=== PATIENT | male | born 1945 | race Caucasian/White ===

== ENCOUNTER 2019-11-06 09:34 | Inpatient (IN) | payer MEDICARE ==
[2019-11-06] VITALS (8 sets, daily range): BP systolic 123–161; BP diastolic 60–79; BMI 28.4
[~2019-11-06] VITALS: Ht 182.9 cm; Wt 94.8 kg
[2019-11-06 10:09] LABS: BASOPHILS 0 % (0-2); EOSINOPHILS 0.5 % (0-7); HEMATOCRIT 39.9 % (42.0-54.0); HEMOGLOBIN 13.8 g/dL (13.5-17.5); IMMATURE GRANULOCYTES 0.3 % (0-5); LYMPHOCYTES 17.7 % (15-50); MCH 28.8 pg (26.0-34.0); MCHC 34.6 g/dL (31.0-37.0); MCV 83.1 fL (80.0-100.0); MEAN PLATELET VOLUME 9.2 fL (7.4-10.4); MONOCYTES 9.1 % (2-11); NEUTROPHILS 72.4 % (40-80); PLATELET COUNT 152 10x3/uL (130-400); RDW 13.1 % (11.5-14.5); WBC 3.8 10x3/uL (4.8-10.8)
[2019-11-06 10:15] LABS: CALC OSMOLALITY 272 mosm/kg (275-300); CALCIUM 8.2 mg/dL (8.5-10.1); CHLORIDE - SERUM 100 mmol/L (98-107); CREATININE - SERUM 1.3 mg/dL (0.6-1.3); GLUCOSE 107 mg/dL (74-106); POTASSIUM - SERUM 3.9 mmol/L (3.5-5.1); SODIUM 135 mmol/L (136-145); UREA NITROGEN 21 mg/dL (7-18); eGFR NON AFRICAN AMERICAN 57 mL/min (90-120)
[2019-11-06 10:16] LABS: APTT 32.3 SECONDS (22.8-39.4)
[2019-11-06 10:20] LABS: INR 1.06 (0.85-1.17); PROTIME 13.7 SECONDS (11.6-15.0)
[2019-11-06 10:35] LABS: ALBUMIN 2.9 g/dL (3.4-5.0); ALKALINE PHOSPHATASE 76 U/L (30-120); ALT (SGPT) 108 U/L (10-68); BILIRUBIN - TOTAL 0.87 mg/dL (0.2-1.3); CKMB 1.2 U/L (0.0-3.6); CREATINE KINASE 454 UL (21-232); PROTEIN - SERUM 6.8 g/dL (6.4-8.2); TROPONIN-I < 0.017 ng/mL (0.000-0.060)
--- NOTE | 2019-11-06 10:40 | NUR ---
PT LAYING IN BED. NO DISTRESS NOTED. COLOR WNL FOR RACE. RESPIRATIONS ARE ARE EVEN AND UNLABORED. WILL CONTINUE TO MONITOR PATIENT.
[2019-11-06 10:55] LABS: BILIRUBIN NEGATIVE (NEGATIVE); KETONE SMALL mg/dL (NEGATIVE); NITRITE NEGATIVE (NEGATIVE); UROBILINOGEN NORMAL mg/dL (< 2)
[2019-11-06 10:57] LABS: BACTERIA FEW /HPF (NONE SEEN); WHITE CELLS - URINE 0-5 HPF (0-1)
--- NOTE | 2019-11-06 12:25 | NUR ---
called report to [facility] at this time.
--- NOTE | 2019-11-06 14:02 | NUR ---
PT RECEIVED TO ROOM FROM ER ON CART. ASSIST TO BED. OXYGEN AT 2.5 LITERS. STATES JUST FEELS BAD. WILL NEED TO CALL PHARMACY FOR MED DOSES FOR MED REC.
[2019-11-06] MEDS ORDERED: COZAAR100 MG PO (14:40)
[2019-11-06] MEDS ORDERED: CRESTOR20 MG PO (14:41)
--- NOTE | 2019-11-06 19:00 | NUR ---
REPORT RECIEVED, PT CARE ASSUMED. INTRODUCED SELF AND WROTE NAME ON BOARD. PT LYING IN BED WITH EYES CLOSED, RR EVEN AND NONLABORED, NO S/S OF DISTRESS, AROUSES EASILY TO VOICE, ORIENTED X4. DENIES ANY NEEDS AT THIS TIME. BED IN LOWEST, SRX2, CALL LIGHT WITHIN REACH. WILL CTM.
[2019-11-07 00:02] VITALS: BP 134/62
[2019-11-07 04:20] VITALS: BP 136/70
[2019-11-07 05:01] LABS: BASOPHILS 0.3 % (0-2); HEMATOCRIT 37.2 % (42.0-54.0); HEMOGLOBIN 12.8 g/dL (13.5-17.5); IMMATURE GRANULOCYTES 7.3 % (0-5); LYMPHOCYTES 11.6 % (15-50); MCH 28.9 pg (26.0-34.0); MCHC 34.4 g/dL (31.0-37.0); MEAN PLATELET VOLUME 8.8 fL (7.4-10.4); MONOCYTES 9.1 % (2-11); NEUTROPHILS 64.7 % (40-80); PLATELET COUNT 163 10x3/uL (130-400); RBC 4.43 10x6/uL (4.20-6.10); RDW 13.1 % (11.5-14.5); WBC 3.3 10x3/uL (4.8-10.8)
[2019-11-07 05:21] LABS: ALBUMIN 2.4 g/dL (3.4-5.0); ANION GAP 12.8 mmol/L (8-16); CARBON DIOXIDE 24.2 mmol/L (21.0-32.0); CREATININE - SERUM 1.1 mg/dL (0.6-1.3)
--- NOTE | 2019-11-07 07:00 | NUR ---
RECEIVED REPORT. ASSUMED CARE OF PATIENT. PATIENT REMAINS IN DROPLET ISOLATION FOR COVID 19.
[2019-11-07 08:25] VITALS: BP 149/69
--- NOTE | 2019-11-07 12:00 | NUR ---
PATIENT RESTING WELL WITH EYES CLOSED, EASILY AROUSED. PATEINT DENIES NEEDS. PATIENT STATES HE FEELS SOMEWHAT BETTER AND MORE TALKATIVE THAN THIS AM. CALL LIGHT WITHIN REACH. NO DISTRESS. BAG OF CLOTHES DELIVERED TO PATIENT THAT WAS BROUGHT AND DROPPED OFF AT THE ED. INCENTIVE SPIROMETRY PROVIDED TO PATEINT AT THIS TIME.
--- NOTE | 2019-11-07 17:45 | NUR ---
RESTING WITH EYES CLOSED. NO DISTRESS. CALL LIGHT WITHIN REACH. FRESH ICEWATER PROVIDED. REMAINS IN ISOLATION, COVID 19 TEST REMAINS PENDING.
--- NOTE | 2019-11-07 19:30 | NUR ---
RECEIVED REPORT, WILL ASSUME CARE OF PT, PUI, WAITING ON RESULTS, [id number], 2L-NC, R.HAND-NS @75, LFA-SL, DENIES ANY NEEDS AT THIS TIME, BED IS LOW, SRX2, CALL LIGHT IN REACH, WILL CONTINUE PLAN OF CARE
[2019-11-07 20:00] VITALS: BP 125/52
--- NOTE | 2019-11-07 20:27 | NUR ---
[place] IN LAB CALLED, COVID IS +
[2019-11-08 08:54] VITALS: BP 115/58
[2019-11-08 11:54] VITALS: BP 165/98
[2019-11-08 15:53] VITALS: BP 159/75
--- NOTE | 2019-11-08 19:30 | NUR ---
RECEIVED REPORT, WILL ASSUME CARE OF PT, 02-2L, IV-R.HAND-NS @50, [id number], DENIES ANY NEEDS AT THIS TIME, BED IS LOW, SRX2, CALL LIGHT IN REACH, WILL CONTINUE PLAN OF CARE
[2019-11-08 20:00] VITALS: BP 148/77
--- NOTE | 2019-11-08 22:20 | NUR ---
CONSENT SIGNED TO RECEIVED PLASMA
--- NOTE | 2019-11-08 23:29 | NUR ---
MANDA TUBBS STARTED 1 UNIT OF PLASMA
[2019-11-09] VITALS: BP 147/79
--- NOTE | 2019-11-09 00:20 | NUR ---
PRE-VITALS FOR PLASMA ADMINSTRATION STABLE. LUNG SOUNDS DIMINISHED. 50 ML/HR FOR FIRST 15 MINS. VITALS AFTER FIRST 15 MINS STABLE, LUNG SOUNDS UNCHANGED. PT DENIES ANY ADVERSE EFFECTS. SET PUMP TO INFUSE OVER 2 HRS. EDUCATED PT ABOUT SYMPTOMS TO ALERT NURSE. PT VERBALIZED UNDERSTANDING. BED LOCKED AND LOWERED, CALL LIGHT IN REACH.
[2019-11-09 04:00] VITALS: BP 154/71
[2019-11-09 06:36] LABS: BASOPHILS 0 % (0-2); EOSINOPHILS 0 % (0-7); HEMATOCRIT 36.4 % (42.0-54.0); HEMOGLOBIN 12.4 g/dL (13.5-17.5); IMMATURE GRANULOCYTES 0.7 % (0-5); LYMPHOCYTES 8.1 % (15-50); MCH 28.4 pg (26.0-34.0); MCHC 34.1 g/dL (31.0-37.0); MCV 83.3 fL (80.0-100.0); MEAN PLATELET VOLUME 9.5 fL (7.4-10.4); MONOCYTES 6.7 % (2-11); NEUTROPHILS 84.5 % (40-80); RBC 4.37 10x6/uL (4.20-6.10); RDW 13.1 % (11.5-14.5); WBC 4.2 10x3/uL (4.8-10.8)
[2019-11-09 06:48] LABS: PLATELET COUNT 249 10x3/uL (130-400)
[2019-11-09 06:56] LABS: ALBUMIN 2.4 g/dL (3.4-5.0); ALKALINE PHOSPHATASE 73 U/L (30-120); ALT (SGPT) 150 U/L (10-68); BILIRUBIN - TOTAL 0.53 mg/dL (0.2-1.3); CALC OSMOLALITY 281 mosm/kg (275-300); CALCIUM 8.4 mg/dL (8.5-10.1); CARBON DIOXIDE 23.5 mmol/L (21.0-32.0); CHLORIDE - SERUM 109 mmol/L (98-107); GLUCOSE 121 mg/dL (74-106); SODIUM 140 mmol/L (136-145); UREA NITROGEN 19 mg/dL (7-18); eGFR NON AFRICAN AMERICAN 77 mL/min (90-120)
--- NOTE | 2019-11-09 07:00 | NUR ---
RECEIVED REPORT. ASSUMED CARE OF PATIENT. PATIENT REMAINS IN DROPLET ISOLATION FOR COVID19.
[2019-11-09 07:30] VITALS: BP 142/70
--- NOTE | 2019-11-09 08:31 | NUR ---
PATIENT SITTING TO SIDE OF BED, STATES HE FEELS MUCH BETTER. LUNGS SOUNDS IMPROVED. PATIENT WITH APPETITE THIS MORNING, CONSUMING AM MEAL. NO DISTRESS.
[2019-11-09 11:30] VITALS: BP 138/68
[2019-11-09 13:26] VITALS: Ht 182.9 cm; Wt 94.8 kg
--- NOTE | 2019-11-09 16:10 | MORECARE ---
CASE MANAGEMENT DISCHARGE SUMMARY PATIENT: EMMANUEL LIRIANO UNIT: [id number] ADM DATE: 11/06/19 AGE: 74 : 43 SEX: M ROOM/BED: D.2131 AUTHOR: MILLY JOLLEY PHYSICIAN: REFERRING PHYSICIAN: DEVONTE GREGORIO MD DATE OF SERVICE: 11/09/19 Discharge Plan Patient Name: EMMANUEL LIRIANO Facility: [facility]:[place] : 1945 Planned Disposition: Anticipated Discharge Date: Discharge Date: Expected LOS: Initial Reviewer: [email or web address] Initial Review Date: 11/06/2019 Generated: 11/09/19 5:09 pm Comments DCP- Discharge Planning Updated by [email or web address]: Lucille Michelle on 11/09/19 3:[address] CM called pt room to complete DC planning assessment. Cm called pt room 3 times, but pt did not answer phone. CM called pt emergency electronic parts salesperson Luis Han at [phone]. CM unable to reach, and could not leave a message. Will continue to assist with dc planning/needs. Lucille Michelle Patient Name: EMMANUEL LIRIANO Page [id number] at 1610 All edits/amendments must be made on the electronic document DICTATION DATE: 11/09/19 1610 MEDICAL RECORDS ADMINISTRATOR: ALEC 11/09/19 1610 RPT#: [id number] DC DATE: STATUS: ADM IN [facility] [address] [place] [address] END OF REPORT
--- NOTE | 2019-11-09 19:00 | NUR ---
REPORT RECEIVED, WILL CONTINUE POC. PATIENT IS RESTING WITH EYES CLOSED. NO S/S OF DISTRESS OBSERVED, RR EVEN AND UNLABORED ON 2L O2 VIA NC. PIV TO RT HAND, SL AND LT FA INFUSING NS @ 75ML/HR. NO NEEDS EXPRESSED AT THIS TIME. CL IN REACH, BED LOCKED AND LOWERED. COVID-19 PRECAUTIONS MAINTAINED. WILL CTM.
[2019-11-09 20:00] VITALS: BP 152/75
--- NOTE | 2019-11-09 23:54 | NUR ---
2ND UNIT OF PLASMA HAS YET TO BE DELIVERED TO THE LAB THEREFORE IS NOT AVAILABLE TO TRANSFUSE AT THIS TIME. LAB WILL CALL WHEN THE PLASMA HAS BEEN DELIVERED AND IS AVAILABLE.
[2019-11-10] VITALS (9 sets, daily range): BP systolic 138–152; BP diastolic 70–81
[2019-11-10 05:10] LABS: BASOPHILS 0.2 % (0-2); EOSINOPHILS 0 % (0-7); HEMATOCRIT 31.8 % (42.0-54.0); HEMOGLOBIN 10.8 g/dL (13.5-17.5); IMMATURE GRANULOCYTES 0.8 % (0-5); LYMPHOCYTES 5.5 % (15-50); MCH 27.9 pg (26.0-34.0); MCV 82.2 fL (80.0-100.0); MEAN PLATELET VOLUME 9.1 fL (7.4-10.4); MONOCYTES 13.1 % (2-11); NEUTROPHILS 80.4 % (40-80); RBC 3.87 10x6/uL (4.20-6.10); RDW 13.4 % (11.5-14.5); WBC 5.1 10x3/uL (4.8-10.8)
[2019-11-10 05:19] LABS: PLATELET COUNT 199 10x3/uL (130-400)
[2019-11-10 05:27] LABS: ALBUMIN 2.3 g/dL (3.4-5.0); ALKALINE PHOSPHATASE 69 U/L (30-120); ALT (SGPT) 118 U/L (10-68); BILIRUBIN - TOTAL 0.44 mg/dL (0.2-1.3); CALC OSMOLALITY 286 mosm/kg (275-300); CARBON DIOXIDE 23.6 mmol/L (21.0-32.0); CHLORIDE - SERUM 110 mmol/L (98-107); GLUCOSE 156 mg/dL (74-106); POTASSIUM - SERUM 3.7 mmol/L (3.5-5.1); PROTEIN - SERUM 5.4 g/dL (6.4-8.2); SODIUM 141 mmol/L (136-145); UREA NITROGEN 22 mg/dL (7-18); eGFR NON AFRICAN AMERICAN 77 mL/min (90-120)
--- NOTE | 2019-11-10 11:09 | NUR ---
PT WITH INCREASING OXYGEN NEEDS. UP TO 10 LITERS HI FLOW. ABG'S DONE AND CALLED TO DR DYER. ORDERS FOR NON-REBREATHER AND TRANSFER TO ICU. HOUSE NOTIFIED, NO BED AVAILABLE AT PRESENT BUT THEY ARE LOOKING AT OPTIONS.
--- NOTE | 2019-11-10 12:04 | NUR ---
PT NOW ON 15 LITERS NON-REBREATHER AND PULSE OX 95%.
--- NOTE | 2019-11-10 14:48 | NUR ---
PT TRANSFERRED TO ICU ON NON-REBREATHER. REPORT GIVEN TO YANNI TUBBS. BELONGINGS WITH PT.
--- NOTE | 2019-11-10 15:45 | NUR ---
PATIENT TRANSFER FROM FLOOR DUE TO INCREASING SOB AND DECREASING SAT'S.PER REPORTING NURSE, PATIENT HAS BEEN NON COMPLIANT WITH NON REBREATHER. PATIENT DOES NOT LIKE TO USE IT. PATIENT IS AWAKE, ALERT AND ORIENTED X 4. PATIENT IS STABLE AND VSS. NON REBREATHER IN PLACE O2 SAATS 96%. PATIENT DENIES ANY NEEDS OR PAIN. WILL CONTINUE WITH PLAN OF CARE. SR UP X 2 BED IN LOW POSITIOIN AND CALL LIGHT IN REACH.
[2019-11-11] VITALS (20 sets, daily range): BP systolic 135–184; BP diastolic 68–87
[2019-11-11 05:12] LABS: BASOPHILS 0.2 % (0-2); EOSINOPHILS 0.2 % (0-7); HEMATOCRIT 33.3 % (42.0-54.0); HEMOGLOBIN 11.2 g/dL (13.5-17.5); IMMATURE GRANULOCYTES 1.1 % (0-5); LYMPHOCYTES 14.2 % (15-50); MCH 28.1 pg (26.0-34.0); MCHC 33.6 g/dL (31.0-37.0); MCV 83.7 fL (80.0-100.0); MEAN PLATELET VOLUME 9.7 fL (7.4-10.4); MONOCYTES 5.4 % (2-11); NEUTROPHILS 78.9 % (40-80); RBC 3.98 10x6/uL (4.20-6.10); RDW 13.6 % (11.5-14.5); WBC 4.6 10x3/uL (4.8-10.8)
[2019-11-11 05:15] LABS: PLATELET COUNT 153 10x3/uL (130-400)
[2019-11-11 05:33] LABS: ALBUMIN 2.1 g/dL (3.4-5.0); ALKALINE PHOSPHATASE 69 U/L (30-120); ALT (SGPT) 90 U/L (10-68); BILIRUBIN - TOTAL 0.48 mg/dL (0.2-1.3); C-REACTIVE PROTEIN 7.7 mg/dL (0.0-0.9); CALC OSMOLALITY 285 mosm/kg (275-300); CALCIUM 7.6 mg/dL (8.5-10.1); CARBON DIOXIDE 24.6 mmol/L (21.0-32.0); CHLORIDE - SERUM 109 mmol/L (98-107); CREATININE - SERUM 0.9 mg/dL (0.6-1.3); FERRITIN 672 ng/mL (3-244); GLUCOSE 128 mg/dL (74-106); LDH 427 U/L (85-227); POTASSIUM - SERUM 4.1 mmol/L (3.5-5.1); PROTEIN - SERUM 5.4 g/dL (6.4-8.2); SODIUM 141 mmol/L (136-145); UREA NITROGEN 21 mg/dL (7-18); eGFR NON AFRICAN AMERICAN 87 mL/min (90-120)
--- NOTE | 2019-11-11 11:10 | NUR ---
O2 CHANGED TO 15L HIGHFLOW CANNULA.
--- NOTE | 2019-11-11 12:36 | NUR ---
Nutrition follow-up: Pt now in ICU 2/2 breathing issues 15 L O2 NRB in place; pt sleeping Diet: Low sodium with po intake 75% of some meals Labs reviewed Wt: 209# RDN following.
[2019-11-12] VITALS (17 sets, daily range): BP systolic 105–195; BP diastolic 48–100
--- NOTE | 2019-11-12 08:26 | NUR ---
INCREASED O2 13L
--- NOTE | 2019-11-12 09:29 | NUR ---
UPDATED ON PT CONDITION. ANSWERED ALL QUESTIONS.
--- NOTE | 2019-11-12 11:10 | NUR ---
Nutrition follow-up: Pt receiving a low sodium diet PO intake ~75% of some meals; 0 at some meals due to BIPAP Labs reviewed wt: 209# Will continue to provide food choices and offer nutritional supplements. RDN following.
[2019-11-12 11:28] LABS: BASOPHILS 0 % (0-2); EOSINOPHILS 0.3 % (0-7); HEMATOCRIT 37.9 % (42.0-54.0); IMMATURE GRANULOCYTES 1.2 % (0-5); LYMPHOCYTES 8.2 % (15-50); MCH 28.6 pg (26.0-34.0); MCHC 34.3 g/dL (31.0-37.0); MCV 83.5 fL (80.0-100.0); MEAN PLATELET VOLUME 9.4 fL (7.4-10.4); MONOCYTES 3.6 % (2-11); NEUTROPHILS 86.7 % (40-80); PLATELET COUNT 159 10x3/uL (130-400); RBC 4.54 10x6/uL (4.20-6.10); RDW 13.6 % (11.5-14.5)
[2019-11-12 11:48] LABS: WBC 7.7 10x3/uL (4.8-10.8)
[2019-11-12 12:22] LABS: ALBUMIN 2.6 g/dL (3.4-5.0); ANION GAP 13.1 mmol/L (8-16); BILIRUBIN - TOTAL 0.95 mg/dL (0.2-1.3); CALCIUM 8.5 mg/dL (8.5-10.1); CARBON DIOXIDE 23.9 mmol/L (21.0-32.0); CREATININE - SERUM 1.1 mg/dL (0.6-1.3); PROTEIN - SERUM 6.4 g/dL (6.4-8.2)
--- NOTE | 2019-11-12 16:04 | NUR ---
TRANSFER TO ROOM 2133. REPORT GIVEN TO KEEGAN.
--- NOTE | 2019-11-12 18:09 | NUR ---
PT TF FROM ICU TO COVID UNIT ROOM 2133 @ 1604/STRETCHER W/IVF AND IVPB IN PROGRESS TO LEFT WRIST W/O DIFFICULTY. PT AWAKE, ALERT, ORIENTED, TALKING ON CELL PHONE. DENIES ANY NEEDS--BEHAVIORAL HEALTH RN IN ROOM TO OBTAIN VS.
[2019-11-13 01:08] VITALS: BP 128/61
[2019-11-13 06:05] LABS: BASOPHILS 0.2 % (0-2); EOSINOPHILS 0.2 % (0-7); HEMATOCRIT 33.4 % (42.0-54.0); HEMOGLOBIN 11.1 g/dL (13.5-17.5); IMMATURE GRANULOCYTES 0.9 % (0-5); MCHC 33.2 g/dL (31.0-37.0); MCV 84.1 fL (80.0-100.0); MEAN PLATELET VOLUME 9.5 fL (7.4-10.4); MONOCYTES 14.1 % (2-11); NEUTROPHILS 77.6 % (40-80); PLATELET COUNT 137 10x3/uL (130-400); RBC 3.97 10x6/uL (4.20-6.10); RDW 13.7 % (11.5-14.5)
[2019-11-13 06:10] LABS: WBC 4.6 10x3/uL (4.8-10.8)
[2019-11-13 06:30] LABS: ALBUMIN 2.1 g/dL (3.4-5.0); ALKALINE PHOSPHATASE 58 U/L (30-120); BILIRUBIN - TOTAL 0.49 mg/dL (0.2-1.3); CALC OSMOLALITY 287 mosm/kg (275-300); CALCIUM 7.7 mg/dL (8.5-10.1); CHLORIDE - SERUM 111 mmol/L (98-107); CREATININE - SERUM 0.9 mg/dL (0.6-1.3); GLUCOSE 119 mg/dL (74-106); POTASSIUM - SERUM 4.2 mmol/L (3.5-5.1); SODIUM 142 mmol/L (136-145); UREA NITROGEN 25 mg/dL (7-18); eGFR NON AFRICAN AMERICAN 87 mL/min (90-120)
[2019-11-13 06:31] LABS: ALT (SGPT) 70 U/L (10-68)
[2019-11-13 08:26] VITALS: BP 160/69
[2019-11-13 11:08] VITALS: BP 144/71
--- NOTE | 2019-11-13 13:37 | NUR ---
I have reviewed this patient and I concur with the Shift Assessment completed by the Licensed Practical Nurse today this shift.
[2019-11-13 17:14] VITALS: BP 137/55
[2019-11-13 20:50] VITALS: BP 138/60
[2019-11-14 00:50] VITALS: BP 134/60
[2019-11-14 04:36] VITALS: BP 148/72
[2019-11-14 06:46] LABS: BASOPHILS 0 % (0-2); EOSINOPHILS 0.5 % (0-7); HEMATOCRIT 32.6 % (42.0-54.0); HEMOGLOBIN 10.9 g/dL (13.5-17.5); IMMATURE GRANULOCYTES 1.2 % (0-5); MCH 27.9 pg (26.0-34.0); MCHC 33.4 g/dL (31.0-37.0); MCV 83.6 fL (80.0-100.0); MEAN PLATELET VOLUME 9.8 fL (7.4-10.4); NEUTROPHILS 76.3 % (40-80); PLATELET COUNT 138 10x3/uL (130-400); RDW 13.8 % (11.5-14.5); WBC 4.2 10x3/uL (4.8-10.8)
[2019-11-14 07:08] LABS: ALBUMIN 2.1 g/dL (3.4-5.0); ALKALINE PHOSPHATASE 58 U/L (30-120); ALT (SGPT) 58 U/L (10-68); BILIRUBIN - TOTAL 0.45 mg/dL (0.2-1.3); CALC OSMOLALITY 279 mosm/kg (275-300); CALCIUM 7.9 mg/dL (8.5-10.1); CARBON DIOXIDE 25.5 mmol/L (21.0-32.0); CHLORIDE - SERUM 107 mmol/L (98-107); CREATININE - SERUM 0.8 mg/dL (0.6-1.3); GLUCOSE 117 mg/dL (74-106); POTASSIUM - SERUM 3.8 mmol/L (3.5-5.1); SODIUM 138 mmol/L (136-145); UREA NITROGEN 20 mg/dL (7-18); eGFR NON AFRICAN AMERICAN > 90 mL/min (90-120)
--- NOTE | 2019-11-14 07:20 | NUR ---
RECIEVE REPORT. RESTING IN BED. NO SIGNS OF DISTRESS. CONTINUE PLAN OF CARE AND SAFETY PRECAUTIONS.
[2019-11-14 08:21] VITALS: BP 151/80
--- NOTE | 2019-11-14 18:00 | NUR ---
ALERT AND ORIENTED X4. SITTING ON SIDE OF BED. NO SIGNS OF DISTRESS. DENIES ANY NEEDS AT THIS TIME. CONTINUE PLAN OF CARE AND SAFETY PRECAUTIONS.
--- NOTE | 2019-11-14 20:30 | NUR ---
PT IN BED, AAO X 3, RESP EVEN AND UNLABORED, NO DISTRESS NOTED, CL IN REACH, SR UP X 2.
[2019-11-14 20:55] VITALS: BP 142/69
[2019-11-15 05:34] LABS: BASOPHILS 0 % (0-2); EOSINOPHILS 0.2 % (0-7); HEMOGLOBIN 10.7 g/dL (13.5-17.5); IMMATURE GRANULOCYTES 1.9 % (0-5); LYMPHOCYTES 10.9 % (15-50); MCH 27.9 pg (26.0-34.0); MCHC 33.4 g/dL (31.0-37.0); MCV 83.6 fL (80.0-100.0); MEAN PLATELET VOLUME 10.1 fL (7.4-10.4); MONOCYTES 11.6 % (2-11); NEUTROPHILS 75.4 % (40-80); PLATELET COUNT 137 10x3/uL (130-400); RBC 3.83 10x6/uL (4.20-6.10); RDW 13.6 % (11.5-14.5); WBC 4.2 10x3/uL (4.8-10.8)
[2019-11-15 06:01] LABS: ALKALINE PHOSPHATASE 53 U/L (30-120); ALT (SGPT) 45 U/L (10-68); BILIRUBIN - TOTAL 0.37 mg/dL (0.2-1.3); CALC OSMOLALITY 279 mosm/kg (275-300); CALCIUM 7.3 mg/dL (8.5-10.1); CARBON DIOXIDE 25.4 mmol/L (21.0-32.0); CHLORIDE - SERUM 109 mmol/L (98-107); CREATININE - SERUM 0.8 mg/dL (0.6-1.3); GLUCOSE 113 mg/dL (74-106); POTASSIUM - SERUM 3.6 mmol/L (3.5-5.1); PROTEIN - SERUM 4.6 g/dL (6.4-8.2); SODIUM 139 mmol/L (136-145); UREA NITROGEN 16 mg/dL (7-18); eGFR NON AFRICAN AMERICAN > 90 mL/min (90-120)
--- NOTE | 2019-11-15 11:18 | NUR ---
PT AWAKE AND ORIENTED. HARD OF HEARING. I/V INTACT FLUIDS RUNNING AT ORDERED RATE. PT STATES HE FEELS GREAT AND WOULD LOVE TO GO HOME TODAY. WILL RELAY TO IDT. TOOK MEDICATIONS WITHOUT COMPLICATIONS. WILL CNT TO MONITOR. CL IN REACH, SRX2.
[2019-11-15 12:42] VITALS: BP 144/84
[2019-11-15 15:08] VITALS: BP 139/71
--- NOTE | 2019-11-15 19:41 | NUR ---
REPORT RECIEVED AND ROUNDING COMPLETE. PATIENT LAYING IN BED IN LOW FOWLERS, WASH CLOTH ACROSS HIS EYES, PAITNET STATES HES ARE BURN FROM LACK OF SLEEP. PATIENT WEARING NASAL CANNULA WITH O2 AT 6L. LEFT FOREARM PIV PATENT, WITH FLUIDS RUNNING AT THIS TIME. NO DISTRESS NOTED AND PATIENT STATES NO NEEDS OTHER THEN GOING HOME AND SLEEP. CALL LIGHT WITHIN REACH AND BED IN LOWEST LOCKED POSITION.
[2019-11-15 20:00] VITALS: BP 135/68
--- NOTE | 2019-11-15 21:11 | MORECARE ---
CASE MANAGEMENT DISCHARGE SUMMARY PATIENT: EMMANUEL LIRIANO UNIT: [id number] ADM DATE: 11/06/19 AGE: 74 : 43 SEX: M ROOM/BED: D.2133 AUTHOR: MILLY JOLLEY PHYSICIAN: REFERRING PHYSICIAN: DEVONTE GREGORIO MD DATE OF SERVICE: 11/15/19 Discharge Plan Patient Name: EMMANUEL LIRIANO Facility: [facility]:[place] : 1945 Planned Disposition: Anticipated Discharge Date: Discharge Date: Expected LOS: Initial Reviewer: [email or web address] Initial Review Date: 11/06/2019 Generated: 11/15/19 10:10 pm Comments DCP- Discharge Planning Updated by [email or web address]: Lucille Michelle on 11/15/19 8:[address] CM called pt room 11/11 3 times without answer. Cm called Luis from pt contact at [phone] and unable to leave message. Cm called room and family contact again 11/14 without any answer. Cm spoke with pt nurse about allowing CM to talk to family if/when they call for update. CM will continues to reach out to family for dc planning/needs. Lucille Michelle DCP- Discharge Planning Updated by [email or web address]: Lucille Michelle on 11/09/19 3:[address] CM called pt room to complete DC planning assessment. Cm called pt room 3 times, but pt did not answer phone. CM called pt emergency contact printer dry film Luis Briangiuliano at [phone]. CM unable to reach, and could not leave a message. Will continue to assist with dc planning/needs. Lucille Michelle Last DP export: 11/09/19 3:10 p Patient Name: EMMANUEL LIRIANO Page [id number] at 2111 All edits/amendments must be made on the electronic document DICTATION DATE: 11/15/192109 ECG TECHNICIAN: ALEC 11/15/192109 RPT#: [id number] DC DATE: STATUS: ADM IN [facility] [address] [place] [address] END OF REPORT
[2019-11-16] VITALS: BP 133/72
[2019-11-16 04:00] VITALS: BP 132/78
[2019-11-16 04:46] LABS: BASOPHILS 0 % (0-2); HEMATOCRIT 34.5 % (42.0-54.0); HEMOGLOBIN 11.5 g/dL (13.5-17.5); LYMPHOCYTES 19.2 % (15-50); MCH 28.1 pg (26.0-34.0); MCHC 33.3 g/dL (31.0-37.0); MCV 84.4 fL (80.0-100.0); MEAN PLATELET VOLUME 9.9 fL (7.4-10.4); MONOCYTES 12.7 % (2-11); NEUTROPHILS 64.1 % (40-80); PLATELET COUNT 137 10x3/uL (130-400); RBC 4.09 10x6/uL (4.20-6.10); RDW 13.9 % (11.5-14.5)
[2019-11-16 04:47] LABS: WBC 3.1 10x3/uL (4.8-10.8)
[2019-11-16 04:54] LABS: ALKALINE PHOSPHATASE 59 U/L (30-120); ALT (SGPT) 42 U/L (10-68); BILIRUBIN - TOTAL 0.45 mg/dL (0.2-1.3); CALC OSMOLALITY 280 mosm/kg (275-300); CALCIUM 7.5 mg/dL (8.5-10.1); CARBON DIOXIDE 28.9 mmol/L (21.0-32.0); CHLORIDE - SERUM 108 mmol/L (98-107); CREATININE - SERUM 0.9 mg/dL (0.6-1.3); GLUCOSE 85 mg/dL (74-106); POTASSIUM - SERUM 3.8 mmol/L (3.5-5.1); PROTEIN - SERUM 4.8 g/dL (6.4-8.2); SODIUM 141 mmol/L (136-145); UREA NITROGEN 16 mg/dL (7-18); eGFR NON AFRICAN AMERICAN 87 mL/min (90-120)
[2019-11-16 08:17] VITALS: BP 118/71
--- NOTE | 2019-11-16 09:37 | NUR ---
WEANED O2 DOWN TO 4L HGIH FLOW NC O2 SAT 97%. WILL CONTINUE TO MONITOR.
--- NOTE | 2019-11-16 10:36 | NUR ---
I have reviewed this patient and I concur with the Shift Assessment completed by the Licensed Practical Nurse today this shift.
[2019-11-16 11:43] VITALS: BP 134/68
--- NOTE | 2019-11-16 14:36 | NUR ---
Nutrition Follow-up: Pt in droplet isolation; covid-19+. Chart reviewed. Nursing reports pt eating well. Diet: Cardiac Wt: 209# (11/08) Labs noted: Ca 7.5, Alb 2.0 Meds noted: vitamin D, vitamin C, Florajen, NS @ 75, electrolyte protocol -RD following.
[2019-11-16 16:23] VITALS: BP 127/71
--- NOTE | 2019-11-16 18:16 | NUR ---
LAB CALLED AND STATED THEY RECEIVED PATIENTS SECOND UNIT OF THE FFP THAT WAS ORDERED 11/08/19, BUT THEY WEREN'T SURE SINCE IF THE MD STILL WANTS IT TO BE GIVEN OR IF THEY WANT TO GIVE IT TO ANOTHER PT. I STATED I WALL CALL MD. CALLED AND SPOKE WITH DR. LANGLEY AND HE STATES TO GIVE IT TO PT. I VERBALIZED UNDERSTANDING. CALLED LAB AND SPOKE WITH MARLENY AND STATED TO HER THAT DR. LANGLEY STATED TO GIVE IT TO PT. SHE STATES SHE WILL WARM IT UP. I VERBALIZED UNDERSTANDING.
--- NOTE | 2019-11-16 19:57 | NUR ---
REPORT RECIEVED AND ROUNDING COMPLETE. PATIENT STANDING IN ROOM, ASKED IF HE WOULD LIKE A BEDSIDE RECLINER AND HE STATES NO HE FEELS LIKE HE NEEDS TO STAND AND MOVE AROUND A BIT EVEN IF IT IS JUST IN HIS ROOM. PATIENT SHOWS NO S/SX OF DISTRESS AT THIS TIME. HE STATES THAT HE FEELS GREAT TODAY, AND CANT WAIT TO GO HOME. LEFT FOREARM PIV PATENT AND RUNNIGN FLUIDS. WEARING NASAL CANNULA WITH O2 AT 2.5L. CALL MONTY LAYING ON HIS BED.
[2019-11-16 20:00] VITALS: BP 115/69
--- NOTE | 2019-11-16 21:23 | MORECARE ---
CASE MANAGEMENT DISCHARGE SUMMARY PATIENT: EMMANUEL LIRIANO UNIT: [id number] ADM DATE: 11/06/19 AGE: 74 : 43 SEX: M ROOM/BED: D.2133 AUTHOR: MILLY JOLLEY PHYSICIAN: REFERRING PHYSICIAN: DEVONTE GREGORIO MD DATE OF SERVICE: 11/16/19 Discharge Plan Patient Name: EMMANUEL LIRIANO Facility: [facility]:[place] : 1945 Planned Disposition: Anticipated Discharge Date: Discharge Date: Expected LOS: Initial Reviewer: [email or web address] Initial Review Date: 11/06/2019 Generated: 11/16/19 10:23 pm Comments DCP- Discharge Planning Updated by [email or web address]: Lucille Michelle on 11/15/19 8:[address] CM called pt room 11/11 3 times without answer. Cm called Luis from pt contact at [phone] and unable to leave message. Cm called room and family contact again 11/14 without any answer. Cm spoke with pt nurse about allowing CM to talk to family if/when they call for update. CM will continues to reach out to family for dc planning/needs. Lucille Michelle DCP- Discharge Planning Updated by [email or web address]: Lucille Michelle on 11/09/19 3:[address] CM called pt room to complete DC planning assessment. Cm called pt room 3 times, but pt did not answer phone. CM called pt emergency contact lens blocker Luis Briangiuliano at [phone]. CM unable to reach, and could not leave a message. Will continue to assist with dc planning/needs. Lucille Michelle Last DP export: 11/15/19 8:11 p Patient Name: EMMANUEL LIRIANO Page [id number] at 2123 All edits/amendments must be made on the electronic document DICTATION DATE: 11/16/192122 NATUROPATH: ALEC 11/16/192122 RPT#: [id number] DC DATE: STATUS: ADM IN [facility] [address] [place] [address] END OF REPORT
--- NOTE | 2019-11-16 21:30 | MORECARE ---
CASE MANAGEMENT DISCHARGE SUMMARY PATIENT: EMMANUEL LIRIANO UNIT: [id number] ADM DATE: 11/06/19 AGE: 74 : 43 SEX: M ROOM/BED: D.2133 AUTHOR: SAMREEN,DOC PHYSICIAN: REFERRING PHYSICIAN: DEVONTE GREGORIO MD DATE OF SERVICE: 11/16/19 Discharge Plan Patient Name: EMMANUEL LIRIANO Facility: [facility]:[place] : 1945 Planned Disposition: Anticipated Discharge Date: Discharge Date: Expected LOS: Initial Reviewer: [email or web address] Initial Review Date: 11/06/2019 Generated: 11/16/19 10:29 pm Comments DCP- Discharge Planning Updated by [email or web address]: Luclile Michelle on 11/15/19 8:[address] CM called pt room 11/11 3 times without answer. Cm called Luis from pt contact at [phone] and unable to leave message. Cm called room and family contact again 11/14 without any answer. Cm spoke with pt nurse about allowing CM to talk to family if/when they call for update. CM will continues to reach out to family for dc planning/needs. Lucille Michelle DCP- Discharge Planning Updated by [email or web address]: Lucille Michelle on 11/09/19 3:[address] CM called pt room to complete DC planning assessment. Cm called pt room 3 times, but pt did not answer phone. CM called pt emergency certified personal trainer Luis Han at [phone]. CM unable to reach, and could not leave a message. Will continue to assist with dc planning/needs. Lucille Michelle DCPIA - Discharge Planning Initial Assessment Updated by [email or web address]: Lucille Michelle on 11/16/19 9:25 pm * Is the patient Alert and Oriented? Yes * How many steps to enter\exit or inside your home? 4/0 * PCP kaitphjamil * Pharmacy [facility] [address] [facility] * Preadmission Environment Home with Family * ADLs Independent * Equipment None * List name and contact numbers for known caregivers / representatives who currently or will assist patient after discharge: Luis Han friend/roommate [phone] * Verbal permission to speak to the caregivers and representatives has been obtained from the patient. Yes * Community resources currently utilized None * Additional services required to return to the preadmission environment? Yes * Can the patient safely return to the preadmission environment? Yes * Has this patient been hospitalized within the prior 30 days at any hospital? No Last DP export: 11/16/19 8:23 p Patient Name: EMMANUEL LIRIANO Page [phone] at 2130 All edits/amendments must be made on the electronic document DICTATION DATE: 11/16/192128 TAG CLERK: ALEC 11/16/192128 RPT#: [id number] DC DATE: STATUS: ADM IN [facility] [address] [place] [address] END OF REPORT
--- NOTE | 2019-11-16 21:36 | MORECARE ---
CASE MANAGEMENT DISCHARGE SUMMARY PATIENT: EMMANUEL WADDELL UNIT: [id number] ADM DATE: 11/06/19 AGE: 74 : 43 SEX: M ROOM/BED: D.2133 AUTHOR: SAMREEN,DOC PHYSICIAN: REFERRING PHYSICIAN: DEVONTE GREGORIO MD DATE OF SERVICE: 11/16/19 Discharge Plan Patient Name: EMMANUEL WADDELL Facility: [facility]:[place] : 1945 Planned Disposition: Anticipated Discharge Date: Discharge Date: Expected LOS: Initial Reviewer: [email or web address] Initial Review Date: 11/06/2019 Generated: 11/16/19 10:36 pm Comments DCP- Discharge Planning Updated by [email or web address]: Lucille Michelle on 11/16/19 8:[address] Patient Name: EMMANUEL WADDELL Admission Status: ER Accout number: [id number] Admission Date: 11-06-2019 : 1945 Admission Diagnosis:COVID-19 Attending: MIKKI Current LOS: 10 Anticipated DC Date: Planned Disposition: Primary Insurance: [facility] [employer] Discharge Planning Comments: CM unable to meet with patient because of covid isolation guidelines. CM attempted to call next of kin, and pt room with out answer. Pt Nurse Kathi met with pt during patient care to provide assessment. Appreciation to nursing with assistance in providing assistance in completing initial dc planning assessment. The patient lives at home with a roommate Luis Han ([phone]). At discharge patient plans to return and feels this is a safe discharge. Nurse discussed availability of home health, rehab services, and medical equipment. The patient is on continuous oxygen and may require home and portable oxygen. n The patient is in agreement to [facility] for his oxygen needs. Mr Waddell is also in agreement to have home health services. He is willing to accept any home health provider to accepts his insurance benefits. CM will seek home health providers at [place]. Patient denies other known discharge needs at this time. Transportation provider at discharge will be Luis. CM will continue to follow and will assist as needed with dc plans/needs. Transonic Engineer: Lucille Michelle DCP- Discharge Planning Updated by [email or web address]: Lucille Michelle on 11/15/19 8:[address] CM called pt room 11/11 3 times without answer. Cm called Luis from pt contact at [phone] and unable to leave message. Cm called room and family contact again 11/14 without any answer. Cm spoke with pt nurse about allowing CM to talk to family if/when they call for update. CM will continues to reach out to family for dc planning/needs. Lucille Michelle DCP- Discharge Planning Updated by [email or web address]: Lucille Michelle on 11/09/19 3:[address] CM called pt room to complete DC planning assessment. Cm called pt room 3 times, but pt did not answer phone. CM called pt emergency personnel research scientist Luis Han at [phone]. CM unable to reach, and could not leave a message. Will continue to assist with dc planning/needs. Lucille Michelle DCPIA - Discharge Planning Initial Assessment Updated by [email or web address]: Lucille Michelle on 11/16/19 9:25 pm * Is the patient Alert and Oriented? Yes * How many steps to enter\exit or inside your home? 4/0 * PCP humphres * Pharmacy [facility] [address] [facility] * Preadmission Environment Home with Family * ADLs Independent * Equipment None * List name and contact numbers for known caregivers / representatives who currently or will assist patient after discharge: Luis Han friend/roommate [phone] * Verbal permission to speak to the caregivers and representatives has been obtained from the patient. Yes * Community resources currently utilized None * Additional services required to return to the preadmission environment? Yes * Can the patient safely return to the preadmission environment? Yes * Has this patient been hospitalized within the prior 30 days at any hospital? 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 [employer] Name: Delivery Method: HAND - Hand Delivered [place] Days: Prior Verbal Notification: Yes Recipient Understood Notice: Yes Recipient Signature: Med Rec Note Co-signed by Attending: Coverage Notice Comment: [facility] for [facility] and home health that will accept [facility] Last DP export: 11/16/19 8:30 p Patient Name: EMMANUEL WADDELL Page [phone] at 213 All edits/amendments must be made on the electronic document DICTATION DATE: 11/16/192135 MEAT TEAM LEAD: ALEC 11/16/192135 RPT#: [id number] DC DATE: STATUS: ADM IN [facility] [address] [place] [address] END OF REPORT
[2019-11-17 04:00] VITALS: BP 155/68
[2019-11-17 06:26] LABS: BASOPHILS 0 % (0-2); EOSINOPHILS 0.2 % (0-7); HEMATOCRIT 33.8 % (42.0-54.0); HEMOGLOBIN 11.2 g/dL (13.5-17.5); IMMATURE GRANULOCYTES 1.2 % (0-5); LYMPHOCYTES 11.1 % (15-50); MCH 27.9 pg (26.0-34.0); MCHC 33.1 g/dL (31.0-37.0); MCV 84.1 fL (80.0-100.0); MEAN PLATELET VOLUME 10.1 fL (7.4-10.4); MONOCYTES 12.7 % (2-11); NEUTROPHILS 74.8 % (40-80); PLATELET COUNT 149 10x3/uL (130-400); RBC 4.02 10x6/uL (4.20-6.10); RDW 13.7 % (11.5-14.5)
[2019-11-17 06:36] LABS: WBC 4.3 10x3/uL (4.8-10.8)
[2019-11-17 06:44] LABS: ALBUMIN 2.3 g/dL (3.4-5.0); ALKALINE PHOSPHATASE 59 U/L (30-120); ALT (SGPT) 37 U/L (10-68); CALC OSMOLALITY 280 mosm/kg (275-300); CALCIUM 8.5 mg/dL (8.5-10.1); CARBON DIOXIDE 28.2 mmol/L (21.0-32.0); CHLORIDE - SERUM 107 mmol/L (98-107); CREATININE - SERUM 0.8 mg/dL (0.6-1.3); GLUCOSE 117 mg/dL (74-106); PROTEIN - SERUM 5.1 g/dL (6.4-8.2); SODIUM 140 mmol/L (136-145); UREA NITROGEN 16 mg/dL (7-18); eGFR NON AFRICAN AMERICAN > 90 mL/min (90-120)
--- NOTE | 2019-11-17 07:15 | NUR ---
RECEIVE SHIFT REPORT. STANDING UP AT BEDSIDE. STATES HE IS READY TO GO HOME. ALERT AND ORIENTED. WILL CONTINUE PLAN OF CARE AND SAFETY PRECAUTIONS.
[2019-11-17 09:05] VITALS: BP 136/67
--- NOTE | 2019-11-17 12:14 | MORECARE ---
CASE MANAGEMENT DISCHARGE SUMMARY PATIENT: EMMANUEL WADDELL UNIT: [id number] ADM DATE: 11/06/19 AGE: 74 : 41 SEX: M ROOM/BED: D.2133 AUTHOR: SAMREEN,DOC PHYSICIAN: REFERRING PHYSICIAN: DEVONTE GREGORIO MD DATE OF SERVICE: 11/17/19 Discharge Plan Patient Name: EMMANUEL WADDELL Facility: [facility]:[place] : 1945 Planned Disposition: Anticipated Discharge Date: Discharge Date: Expected LOS: Initial Reviewer: [email or web address] Initial Review Date: 11/06/2019 Generated: 11/17/19 1:14 pm Comments DCP- Discharge Planning Updated by [email or web address]: Lucille Michelle on 11/16/19 8:[address] Patient Name: EMMANUEL WADDELL Admission Status: ER Accout number: [id number] Admission Date: 11-06-2019 : 1945 Admission Diagnosis:COVID-19 Attending: MIKKI Current LOS: 10 Anticipated DC Date: Planned Disposition: Primary Insurance: [facility] MEDICARE SOLUTIONS Discharge Planning Comments: CM unable to meet with patient because of covid isolation guidelines. CM attempted to call next of kin, and pt room with out answer. Pt Nurse Kathi met with pt during patient care to provide assessment. Appreciation to nursing with assistance in providing assistance in completing initial dc planning assessment. The patient lives at home with a roommate Luis Han ([phone]). At discharge patient plans to return and feels this is a safe discharge. Nurse discussed availability of home health, rehab services, and medical equipment. The patient is on continuous oxygen and may require home and portable oxygen. n The patient is in agreement to [facility] for his oxygen needs. Mr Waddell is also in agreement to have home health services. He is willing to accept any home health provider to accepts his insurance benefits. CM will seek home health providers at [place]. Patient denies other known discharge needs at this time. Transportation provider at discharge will be Luis. CM will continue to follow and will assist as needed with dc plans/needs. Professional Volleyball Player: Lucille Michelle DCP- Discharge Planning Updated by [email or web address]: Lucille Michelle on 11/15/19 8:[address] CM called pt room 11/11 3 times without answer. Cm called Luis from pt contact at [phone] and unable to leave message. Cm called room and family contact again 11/14 without any answer. Cm spoke with pt nurse about allowing CM to talk to family if/when they call for update. CM will continues to reach out to family for dc planning/needs. Lucille Michelle DCP- Discharge Planning Updated by [email or web address]: Lucille Michelle on 11/09/19 3:[address] CM called pt room to complete DC planning assessment. Cm called pt room 3 times, but pt did not answer phone. CM called pt emergency customer contact specialist Luis Han at [phone]. CM unable to reach, and could not leave a message. Will continue to assist with dc planning/needs. Lucille Michelle DCPIA - Discharge Planning Initial Assessment Updated by [id number]: Lucille Michelle on 11/16/19 9:25 pm * Is the patient Alert and Oriented? Yes * How many steps to enter\exit or inside your home? 4/0 * PCP humphres * Pharmacy [facility] [address] [facility] * Preadmission Environment Home with Family * ADLs Independent * Equipment None * List name and contact numbers for known caregivers / representatives who currently or will assist patient after discharge: Luis Han friend/roommate [phone] * Verbal permission to speak to the caregivers and representatives has been obtained from the patient. Yes * Community resources currently utilized None * Additional services required to return to the preadmission environment? Yes * Can the patient safely return to the preadmission environment? Yes * Has this patient been hospitalized within the prior 30 days at any hospital? No External Providers External Provider: [facility] Next Contact Date: Service Request Date: Service Type: Resolution: Reviewer: Comments: Coverage Notice Reviewer: [id number] - Lucille Michelle Notice Issued Date-Time: 11/16/2019 16:30 Notice Type: Patient Choice Letter Notice Delivered To: Patient Relationship to Patient: Self Chief Meter Reader Name: Delivery Method: HAND - Hand Delivered Lolis Days: Prior Verbal Notification: Yes Recipient Understood Notice: Yes Recipient Signature: Med Rec Note Co-signed by Attending: Coverage Notice Comment: KESHIA for [facility] and home health that will accept [facility] Last DP export: 11/16/19 8:36 p Patient Name: EMMANUEL WADDELL Page [id number] at 1214 All edits/amendments must be made on the electronic document DICTATION DATE: 11/17/191213 PERINATAL SOCIAL WORKER: ALEC 11/17/19 1214 RPT#: [id number] DC DATE: STATUS: ADM IN [facility] [address] [place] [address] END OF REPORT
[2019-11-17] MEDS ORDERED: DECADRON4 MG PO (12:15)
[2019-11-17] MEDS ORDERED: VENTOLIN HFA [SP8 GM INH (12:16)
[2019-11-17] MEDS ORDERED: ELIQUIS2.5 MG PO ×2 (12:27→15:22)
--- NOTE | 2019-11-17 16:32 | MORECARE ---
CASE MANAGEMENT DISCHARGE SUMMARY PATIENT: EMMANUEL WADDELL UNIT: [id number] ADM DATE: 11/06/19 AGE: 74 : 43 SEX: M ROOM/BED: D.2133 AUTHOR: SAMREEN,DOC PHYSICIAN: REFERRING PHYSICIAN: DEVONTE GREGORIO MD DATE OF SERVICE: 11/17/19 Discharge Plan Patient Name: EMMANUEL WADDELL Facility: [facility]:[place] : 1945 Planned Disposition: Anticipated Discharge Date: Discharge Date: Expected LOS: Initial Reviewer: [id number] Initial Review Date: 11/06/2019 Generated: 11/17/19 5:31 pm Comments DCP- Discharge Planning Updated by [email or web address]: Lucille Michelle on 11/16/19 8:[address] Patient Name: EMMANUEL WADDELL Admission Status: ER Accout number: [id number] Admission Date: 11-06-2019 : 1945 Admission Diagnosis:COVID-19 Attending: MIKKI Current LOS: 10 Anticipated DC Date: Planned Disposition: Primary Insurance: [facility] MEDICARE SOLUTIONS Discharge Planning Comments: CM unable to meet with patient because of covid isolation guidelines. CM attempted to call next of kin, and pt room with out answer. Pt Nurse Kathi met with pt during patient care to provide assessment. Appreciation to nursing with assistance in providing assistance in completing initial dc planning assessment. The patient lives at home with a roommate Luis Han ([phone]). At discharge patient plans to return and feels this is a safe discharge. Nurse discussed availability of home health, rehab services, and medical equipment. The patient is on continuous oxygen and may require home and portable oxygen. n The patient is in agreement to [facility] for his oxygen needs. Mr Waddell is also in agreement to have home health services. He is willing to accept any home health provider to accepts his insurance benefits. CM will seek home health providers at [place]. Patient denies other known discharge needs at this time. Transportation provider at discharge will be Luis. CM will continue to follow and will assist as needed with dc plans/needs. Junior Architect: Lucille Michelle DCP- Discharge Planning Updated by [id number]: Lucille Michelle on 11/15/19 8:[address] CM called pt room 11/11 3 times without answer. Cm called Luis from pt contact at [phone] and unable to leave message. Cm called room and family contact again 11/14 without any answer. Cm spoke with pt nurse about allowing CM to talk to family if/when they call for update. CM will continues to reach out to family for dc planning/needs. Lucille Michelle DCP- Discharge Planning Updated by [email or web address]: Lucille Michelle on 11/09/19 3:[address] CM called pt room to complete DC planning assessment. Cm called pt room 3 times, but pt did not answer phone. CM called pt emergency automotive parts counter person Luis Han at [phone]. CM unable to reach, and could not leave a message. Will continue to assist with dc planning/needs. Lucille Michelle DCPIA - Discharge Planning Initial Assessment Updated by [email or web address]: Lucille Michelle on 11/16/19 9:25 pm * Is the patient Alert and Oriented? Yes * How many steps to enter\exit or inside your home? 4/0 * PCP humphres * Pharmacy [facility] [address] [facility] * Preadmission Environment Home with Family * ADLs Independent * Equipment None * List name and contact numbers for known caregivers / representatives who currently or will assist patient after discharge: Luis Han friend/roommate [phone] * Verbal permission to speak to the caregivers and representatives has been obtained from the patient. Yes * Community resources currently utilized None * Additional services required to return to the preadmission environment? Yes * Can the patient safely return to the preadmission environment? Yes * Has this patient been hospitalized within the prior 30 days at any hospital? No External Providers External Provider: [facility] Next Contact Date: Service Request Date: Service Type: Resolution: Reviewer: Comments: Coverage Notice Reviewer: [id number] - Lucille Michelle Notice Issued Date-Time: 11/16/2019 16:30 Notice Type: Patient Choice Letter Notice Delivered To: Patient Relationship to Patient: Self Career Based Intervention Coordinator Name: Delivery Method: HAND - Hand Delivered Lolis Days: Prior Verbal Notification: Yes Recipient Understood Notice: Yes Recipient Signature: Med Rec Note Co-signed by Attending: Coverage Notice Comment: [facility] for [facility] and home health that will accept [facility] Last DP export: 11/17/19 11:14 a Patient Name: EMMANUEL WADDELL Page [phone] at 1632 All edits/amendments must be made on the electronic document DICTATION DATE: 11/17/19 163 LOCAL SUPERINTENDENT: ALEC 11/17/192 RPT#: [id number] DC DATE: STATUS: ADM IN [facility] [address] [place] [address] END OF REPORT
--- NOTE | 2019-11-17 16:51 | MORECARE ---
CASE MANAGEMENT DISCHARGE SUMMARY PATIENT: EMMANUEL WADDELL UNIT: [id number] ADM DATE: 11/06/19 AGE: 74 : 43 SEX: M ROOM/BED: D.2133 AUTHOR: SAMREENDOC PHYSICIAN: REFERRING PHYSICIAN: DEVONTE GREGORIO MD DATE OF SERVICE: 11/17/19 Discharge Plan Patient Name: EMMANUEL WADDELL Facility: [facility]:[place] : 1945 Planned Disposition: Anticipated Discharge Date: Discharge Date: Expected LOS: Initial Reviewer: [id number] Initial Review Date: 11/06/2019 Generated: 11/17/19 5:50 pm Comments DCP- Discharge Planning Updated by [email or web address]: Richard Moore on 11/17/19 3:[address] Patient Name: EMMANUEL WADDELL Encounter No: [id number] : 1945 Primary Insurance: [facility] MEDICARE SOLUTIONS Anticipated DC Date: Planned Disposition: External Planned Provider: : DCP follow-up note: TC Coordinated with [employer] at [phone] spoke with Michelle. H&P, HH Order, DC Summary, and Medlist sent to Michelle via [employer] at [phone]. Received fax confirmation. TC Coordinated with [facility], for home oxygen 2L. Portable O2 arrived and delivered to DC nurse. Will continue to follow. Richard Moore DCP- Discharge Planning Updated by [id number]: Lucille Michelle on 11/16/19 8:[address] Patient Name: EMMANUEL WADDELL Admission Status: ER Accout number: [id number] Admission Date: 11-06-2019 : 1945 Admission Diagnosis:COVID-19 Attending: MIKKI Current LOS: 10 Anticipated DC Date: Planned Disposition: Primary Insurance: [facility] MEDICARE SOLUTIONS Discharge Planning Comments: CM unable to meet with patient because of covid isolation guidelines. CM attempted to call next of kin, and pt room with out answer. Pt Nurse Kathi met with pt during patient care to provide assessment. Appreciation to nursing with assistance in providing assistance in completing initial dc planning assessment. The patient lives at home with a roommate Luis Han ([phone]). At discharge patient plans to return and feels this is a safe discharge. Nurse discussed availability of home health, rehab services, and medical equipment. The patient is on continuous oxygen and may require home and portable oxygen. n The patient is in agreement to [facility] for his oxygen needs. Mr Waddell is also in agreement to have home health services. He is willing to accept any home health provider to accepts his insurance benefits. CM will seek home health providers at [place]. Patient denies other known discharge needs at this time. Transportation provider at discharge will be Luis. CM will continue to follow and will assist as needed with dc plans/needs. Boarding House Cook: Lucille Michelle DCP- Discharge Planning Updated by [id number]: Lucille Michelle on 11/15/19 8:[address] CM called pt room 11/11 3 times without answer. Cm called Luis from pt contact at [phone] and unable to leave message. Cm called room and family contact again 11/14 without any answer. Cm spoke with pt nurse about allowing CM to talk to family if/when they call for update. CM will continues to reach out to family for dc planning/needs. Lucille Michelle DCP- Discharge Planning Updated by [email or web address]: Lucille Michelle on 11/09/19 3:[address] CM called pt room to complete DC planning assessment. Cm called pt room 3 times, but pt did not answer phone. CM called pt emergency awning craftsperson Luis Torresgiuliano at [phone]. CM unable to reach, and could not leave a message. Will continue to assist with dc planning/needs. Lucille Michelle DCPIA - Discharge Planning Initial Assessment Updated by [id number]: Lucille Michelle on 11/16/19 9:25 pm * Is the patient Alert and Oriented? Yes * How many steps to enter\exit or inside your home? 4/0 * PCP makayla * [facility] [address] [facility] * Preadmission Environment Home with Family * ADLs Independent * Equipment None * List name and contact numbers for known caregivers / representatives who currently or will assist patient after discharge: Luis Guille friend/roommate [phone] * Verbal permission to speak to the caregivers and representatives has been obtained from the patient. Yes * Community resources currently utilized None * Additional services required to return to the preadmission environment? Yes * Can the patient safely return to the preadmission environment? Yes * Has this patient been hospitalized within the prior 30 days at any hospital? No Coverage Notice Reviewer: [id number] Mukund Michelle Notice Issued Date-Time: 11/16/2019 16:30 Notice Type: Patient Choice Letter Notice Delivered To: Patient Relationship to Patient: Self Landscape Foreman Name: Delivery Method: HAND - Hand Delivered Lolis Days: Prior Verbal Notification: Yes Recipient Understood Notice: Yes Recipient Signature: Med Rec Note Co-signed by Attending: Coverage Notice Comment: KESHIA for [facility] and home health that will accept [facility] Last DP export: 11/17/19 3:32 p Patient Name: EMMANUEL WADDELL Page [phone] at 1651 All edits/amendments must be made on the electronic document DICTATION DATE: 11/17/191649 [facility]: ALEC 11/17/191649 RPT#: [id number] DC DATE: STATUS: ADM IN [facility] [address] [place] [address] END OF REPORT
--- NOTE | 2019-11-17 17:40 | NUR ---
D/C LEFT FOREARM IV, TIP INTACT. INSTRUCTED ON HOME OXYGEN USE AND PLACED ON PATIENT 2L NC. DISCHARGE INSTRUCTIONS GIVEN VERBALLY AND HANDOUTS PROVIDED. TAKEN DOWN TO ED ENTRACE TO ROOMATE. REMAINS FREE FROM INJURY.
--- NOTE | 2019-11-18 09:34 | MORECARE ---
CASE MANAGEMENT DISCHARGE SUMMARY PATIENT: EMMANUEL WADDELL UNIT: [id number] ADM DATE: 11/06/19 AGE: 74 : 43 SEX: M ROOM/BED: D.2133 AUTHOR: MILLY JOLLEY PHYSICIAN: REFERRING PHYSICIAN: DEVONTE GREGORIO MD DATE OF SERVICE: 11/18/19 Discharge Plan Patient Name: EMMANUEL WADDELL Facility: [facility]:[place] : 1945 Planned Disposition: Anticipated Discharge Date: Discharge Date: 11/17/2019 Expected LOS: Initial Reviewer: [email or web address] Initial Review Date: 11/06/2019 Generated: 11/18/19 10:33 am Comments DCP- Discharge Planning Updated by [id number]: Richard Moore on 11/17/19 3:[address] Patient Name: EMMANUEL WADDELL Encounter No: [id number] : 1945 Primary Insurance: [facility] MEDICARE SOLUTIONS Anticipated DC Date: Planned Disposition: External Planned Provider: : DCP follow-up note: TC Coordinated with [employer] at [phone] spoke with Michelle. H&P, HH Order, DC Summary, and Medlist sent to Michelle via [employer] at [phone]. Received fax confirmation. TC Coordinated with [facility], for home oxygen 2L. Portable O2 arrived and delivered to DC nurse. Will continue to follow. Richard Moore DCP- Discharge Planning Updated by [email or web address]: Lucille Michelle on 11/16/19 8:[address] Patient Name: EMMANUEL WADDELL Admission Status: ER Accout number: [id number] Admission Date: 11-06-2019 : 1945 Admission Diagnosis:COVID-19 Attending: MIKKI Current LOS: 10 Anticipated DC Date: Planned Disposition: Primary Insurance: [facility] [employer]UTIONS Discharge Planning Comments: CM unable to meet with patient because of covid isolation guidelines. CM attempted to call next of kin, and pt room with out answer. Pt Nurse Kathi met with pt during patient care to provide assessment. Appreciation to nursing with assistance in providing assistance in completing initial dc planning assessment. The patient lives at home with a roommate Luis Han ([phone]). At discharge patient plans to return and feels this is a safe discharge. Nurse discussed availability of home health, rehab services, and medical equipment. The patient is on continuous oxygen and may require home and portable oxygen. n The patient is in agreement to [facility] for his oxygen needs. Mr Waddell is also in agreement to have home health services. He is willing to accept any home health provider to accepts his insurance benefits. CM will seek home health providers at [place]. Patient denies other known discharge needs at this time. Transportation provider at discharge will be Luis. CM will continue to follow and will assist as needed with dc plans/needs. Tank Crewmember: Lucille Michelle DCP- Discharge Planning Updated by [id number]: Lucille Michelle on 11/15/19 8:[address] CM called pt room 11/11 3 times without answer. Cm called Luis from pt contact at [phone] and unable to leave message. Cm called room and family contact again 11/14 without any answer. Cm spoke with pt nurse about allowing CM to talk to family if/when they call for update. CM will continues to reach out to family for dc planning/needs. Lucille Michelle DCP- Discharge Planning Updated by [id number]: Lucille Michelle on 11/09/19 3:[address] CM called pt room to complete DC planning assessment. Cm called pt room 3 times, but pt did not answer phone. CM called pt emergency veterans contact representative Luis Han at [phone]. CM unable to reach, and could not leave a message. Will continue to assist with dc planning/needs. Lucille Michelle DCPIA - Discharge Planning Initial Assessment Updated by [email or web address]: Lucille Michelle on 11/16/19 9:25 pm * Is the patient Alert and Oriented? Yes * How many steps to enter\exit or inside your home? 4/0 * PCP makayla * Pharmacy [facility] [address] [facility] * Preadmission Environment Home with Family * ADLs Independent * Equipment None * List name and contact numbers for known caregivers / representatives who currently or will assist patient after discharge: Luis Han friend/roommate [phone] * Verbal permission to speak to the caregivers and representatives has been obtained from the patient. Yes * Community resources currently utilized None * Additional services required to return to the preadmission environment? Yes * Can the patient safely return to the preadmission environment? Yes * Has this patient been hospitalized within the prior 30 days at any hospital? No Coverage Notice Reviewer: [id number] Mukund Michelle Notice Issued Date-Time: 11/16/2019 16:30 Notice Type: Patient Choice Letter Notice Delivered To: Patient Relationship to Patient: Self Feed Elevator Worker Name: Delivery Method: HAND - Hand Delivered Lolis Days: Prior Verbal Notification: Yes Recipient Understood Notice: Yes Recipient Signature: Med Rec Note Co-signed by Attending: Coverage Notice Comment: [facility] for [facility] and [facility] that will accept [facility] Last DP export: 11/17/19 3:51 p Patient Name: EMMANUEL WADDELL Page [phone] at 0934 All edits/amendments must be made on the electronic document DICTATION DATE: 11/18/19932 DOCK SUPERINTENDENT: ALEC 11/18/19932 RPT#: [id number] DC DATE:11/17/19 STATUS: DIS IN [facility] [address] [place] [address] END OF REPORT
== END 2019-11-17 18:14 | disposition home health service (06) | DRG 177 ==
LOC: D.ER 09:34 → D.M2 11:25 → D.EDHOLD 11:25 → D.ICU 11:25 → D.M2 11:43 → D.ICU 11-10 14:50 → D.M2 11-12 16:05
PROVIDERS: Family Medicine; Internal Medicine Pulmonary Disease; ADMIT Family Medicine; ATTEND Family Medicine
PROC: XW033E5 Introduction of Remdesivir Anti-infective into Peripheral Vein, Percutaneous Approach, New Technology Group 5 (ICD-10-PCS; principal; 2019-11-08)
DX: U07.1 COVID-19 (principal); J12.89 Other viral pneumonia; J96.01 Acute respiratory failure with hypoxia; G93.41 Metabolic encephalopathy; I10 Essential (primary) hypertension; R74.0 Nonspecific elevation of levels of transaminase and lactic acid dehydrogenase [LDH]; R53.81 Other malaise; R53.83 Other fatigue; D64.9 Anemia, unspecified